=== PATIENT | female | born 1990 | race African-American/Black ===

== ENCOUNTER 2020-09-27 10:25 | Emergency (ER) | payer OTHER ==
[~2020-09-27] VITALS: Ht 165.1 cm; Wt 81.6 kg
[~2020-09-27 10:25] MED LIST: FERR-13 PO; PREN-385 PO
[2020-09-27 10:30] VITALS: BP 150/97
--- NOTE | 2020-09-27 10:40 | NUR ---
PT AMBULATED TO BED 06.
--- NOTE | 2020-09-27 10:40 | NUR ---
30Y/O F BIB SELF C/C 02/11 CHRONIC CHEST PAIN THAT FEELS LIKE A CONSTANT PRESSURE NORAMLLY ASSOCIATED WITH HER ANXIETY THAT BEGAN INTENSIFYING LAST NIGHT AND RADIATES TO HER BACK. PT DENIES SOB, PALPITATIONS, EDEMA, HEADACHE. 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 PT REPORTS DAILY USE OF IBUPROFEN TO HELP WITH PAIN AND REPORTS MILD EPIGASTRIC ABD PAIN. RX: IBUPROFEN 600MG PMH: ANXIETY, ANEMIA, PTSD, BIPOLAR ALLX: PCN, CODEINE, AND FENTANYL
--- NOTE | 2020-09-27 10:45 | NUR ---
EKG AT BEDSIDE
--- NOTE | 2020-09-27 10:45 | NUR ---
ERMD AT BEDSIDE
[2020-09-27] MEDS ORDERED: KETOROLAC 30 MG/ML VIAL IM ONE (10:55)
[2020-09-27] MEDS ORDERED: LORazepam 0.5 MG TAB PO ONE (10:55)
--- NOTE | 2020-09-27 11:14 | NUR ---
RAD AT BEDSIDE
[2020-09-27 11:34] LABS: ANION GAP 10.7 (8-16); CARBON DIOXIDE 27.9 mmol/L (21-32); CREATININE 0.7 mg/dL (0.6-1.3); POTASSIUM 3.6 mmol/L (3.5-5.1)
[2020-09-27] MEDS ORDERED: NAPR-54 PO (12:09)
[2020-09-27] MEDS ORDERED: IBUPROFEN 600 MG TAB PO ONE (12:10)
--- NOTE | 2020-09-27 12:10 | NUR ---
PT STATES SHE DOES NOT FEEL BETTER AFTER ATIVAN BUT STATES SHE REFUSED THE ATIVAN. PO PAIN MEDS OFFERED TO PATIENT AND PT AGREES TO TAKE IBUPROFEN ORALLY. DR. SEO MADE AWARE AND VERBAL ORDER PLACED.
--- NOTE | 2020-09-27 12:15 | NUR ---
PROVIDER AT BEDSIDE EVALUATING PT.
[2020-09-27 12:16] VITALS: BP 131/91
== END 2020-09-27 12:16 | disposition home or self-care (01) ==
LOC: MED 10:25
DX: R07.9 Chest pain, unspecified (principal); M54.6 Pain in thoracic spine; Z88.5 Allergy status to narcotic agent; Z88.0 Allergy status to penicillin; Z79.899 Other long term (current) drug therapy
CPT/HCPCS: 36415; 71045; 80048; 81002; 81025; 85379; 93005; 99285; J1885

== ENCOUNTER 2022-06-10 03:40 | Emergency (ER) | payer OTHER ==
[~2022-06-10] VITALS: Ht 165.1 cm; Wt 82.6 kg
[2022-06-10 03:45] VITALS: BP 140/90
--- NOTE | 2022-06-10 04:12 | NUR ---
Patient taken to bed 5.
--- NOTE | 2022-06-10 04:41 | NUR ---
Dr. Peters examining patient.
[2022-06-10 05:58] LABS: BILIRUBIN,URINE 1+ (NEGATIVE); BLOOD, URINE NEGATIVE (NEGATIVE); COLOR,URINE YELLOW (YELLOW); LEUKOCYTE ESTERASE ,URINE NEGATIVE (NEGATIVE); NITRITE, URINE NEGATIVE (NEGATIVE); UGLUCOSE NEGATIVE (NEGATIVE)
[2022-06-10] MEDS ORDERED: [UNRECOGNIZED DRUG - CODE] RC (06:14)
[2022-06-10 06:15] LABS: APPEARANCE,URINE SLIGHTLY HAZY (CLEAR)
[2022-06-10] MEDS ORDERED: ACET-10509 PO (06:15)
[2022-06-10 06:16] LABS: RBC,URINE 0-5 /HPF (0-5)
[2022-06-10] MEDS ORDERED: NITR100C7 PO (06:18)
[2022-06-10] MEDS ORDERED: ACETAMINOPHEN EXTRA STRENGTH 500 MG TAB ONE (06:29)
[2022-06-10] MEDS ORDERED: ACETAMINOPHEN EXTRA STRENGTH 500 MG TAB PO ONE (06:30)
[2022-06-10 06:37] VITALS: BP 128/67
--- NOTE | 2022-06-10 06:38 | NUR ---
Patient discharged with v/s stable. Written and verbal after care instructions given and explained. Patient alert, oriented and verbalized understanding of instructions. Ambulatory with steady gait. All questions addressed prior to discharge. ID band removed. Patient advised to follow up with PMD AND OBGYN. Rx of TYLENOL AND MACROBID given. Patient educated on indication of medication including possible reaction and side effects. Opportunity to ask questions provided and answered.
== END 2022-06-10 06:38 | disposition home or self-care (01) ==
LOC: MED 03:40
DX: O99.612 Diseases of the digestive system complicating pregnancy, second trimester (principal); K59.00 Constipation, unspecified; O22.42 Hemorrhoids in pregnancy, second trimester; O23.42 Unspecified infection of urinary tract in pregnancy, second trimester; Z3A.15 15 weeks gestation of pregnancy; Z79.2 Long term (current) use of antibiotics; Z79.899 Other long term (current) drug therapy; Z88.0 Allergy status to penicillin; Z88.5 Allergy status to narcotic agent
CPT/HCPCS: 81001; 81025; 87086; 99284